=== PATIENT | female | born 1950 | race African-American/Black ===

== ENCOUNTER 2017-08-23 14:34 | Emergency (ER) | payer MEDICARE ==
[~2017-08-23] VITALS: Ht 154.9 cm; Wt 75.0 kg
[2017-08-23 17:25] VITALS: BP 157/74
== END 2017-08-23 17:33 | disposition home or self-care (01) ==
LOC: ER 16:33
DX: M25.551 Pain in right hip (principal)
CPT/HCPCS: 72170; 99283